=== PATIENT | male | born 1940 | race Caucasian/White ===

== ENCOUNTER 2017-02-26 14:37 | Observation (INO) | payer OTHER, BC, MEDICARE ==
[~2017-02-26] VITALS: Ht 182.9 cm; Wt 116.4 kg
[~2017-02-26 14:37] MED LIST: DIOVAN40 MG PO; GLUCOPHAGE500 MG PO; IMDUR30 MG PO; PROTONIX40 MG PO; TENORMIN25 MG PO; ZOCOR10 MG PO
[2017-02-26 16:18] LABS: ADD MIUA? NO; BILIRUBIN NEGATIVE; BLOOD NEGATIVE; COLOR YELLOW ((YELLOW)); GLUCOSE (STRIP) >=500; KETONES NEGATIVE; LEUKOCYTES NEGATIVE; NITRITE NEGATIVE; PROTEIN (STRIP) NEGATIVE; SPECIFIC GRAVITY 1.023 (1.000-1.030); UROBILINOGEN 0.2 MG/DL (0.2-1.0)
[2017-02-26 16:29] LABS: HEMATOCRIT 47.2 % (38.0-50.0); MCH 29.3 PG (29.0-34.0); MCHC 33.5 G/DL (30.0-36.0); MCV 87.6 FL (86-99); MEAN PLAT.VOLUME 10.6 uM^3 (9.0-12.4); PLATELET COUNT 285 K/uL (156-360); RBC DIS.WIDTH-SD 41.9 % (39-53); RED BLOOD COUNT 5.39 M/uL (4.00-5.50); WHITE BLOOD COUNT 14.9 K/uL (4.1-10.2)
[2017-02-26 17:12] LABS: CHLORIDE 102 mEq/L (99-109); POTASSIUM 4.9 mEq/L (3.7-5.4); SODIUM 136 mEq/L (136-147)
[2017-02-26 17:14] LABS: GLUCOSE 242 mg/dL (70-99)
[2017-02-26 17:15] LABS: ANION GAP 8 MEQ/L (2-14)
[2017-02-26 17:16] LABS: TOTAL BILIRUBIN 0.7 mg/dL (0.0-1.0)
[2017-02-26 17:18] LABS: ALKALINE PHOSPHATASE 72 IU/L (3-129); GFR ESTIMATE (CALCULATED) > 59 mL/min/
[2017-02-26 17:19] LABS: UREA NITROGEN (BUN) 24 mg/dL (9-23)
[2017-02-26 17:21] LABS: LIPASE 29 U/L (1.0-51.0); URIC ACID 4.8 mg/dL (3.1-9.2)
[2017-02-26] MEDS ORDERED: VITAMIN D31000 UNIT PO (19:33)
[2017-02-26] MEDS ORDERED: VITAMIN B-650 MG PO (19:33)
[2017-02-26 22:50] VITALS: BP 146/78
[2017-02-27 03:33] VITALS: BP 107/60
[2017-02-27 06:09] LABS: BASOPHIL COUNT 0.1 K/uL (0-0.1); EOSINOPHIL (%) 2.6 % (0-5); EOSINOPHIL COUNT 0.3 K/uL (0-0.3); HEMATOCRIT 40.5 % (38.0-50.0); IMMATURE GRANULOCYTE (%) 0.8 % (0.0-0.7); IMMATURE GRANULOCYTE COUNT 0.1 K/uL; INSTRUMENT ABS NEUTROPHIL CT 7.7 K/uL; LYMPHOCYTE COUNT 1.2 K/uL (1.0-2.8); MCH 29.7 PG (29.0-34.0); MCHC 33.8 G/DL (30.0-36.0); MCV 87.9 FL (86-99); MONOCYTE (%) 11.8 % (3-12); MONOCYTE COUNT 1.3 K/uL (0-0.8); NEUTROPHIL COUNT 7.7 K/uL (1.8-6.4); RBC DIS.WIDTH-CV 13.2 % (11.8-14.6); RBC DIS.WIDTH-SD 42.1 % (39-53); RED BLOOD COUNT 4.61 M/uL (4.00-5.50); WHITE BLOOD COUNT 10.6 K/uL (4.1-10.2)
[2017-02-27 06:21] LABS: ALKALINE PHOSPHATASE 53 IU/L (3-129); ANION GAP 9 MEQ/L (2-14); CHLORIDE 103 MEQ/L (99-109); GFR ESTIMATE (CALCULATED) > 59 mL/min/; GLUCOSE 185 mg/dL (70-99); POTASSIUM 4.6 MEQ/L (3.7-5.4); SAMPLE HEMOLYSIS CHECK 0; SAMPLE ICTERIC CHECK 0; SAMPLE LIPEMIA CHECK 0; SODIUM 135 MEQ/L (136-147); TOTAL BILIRUBIN 0.6 MG/DL (0.0-1.0); UREA NITROGEN (BUN) 25 mg/dL (9-23)
[2017-02-27 06:27] LABS: MEAN PLAT.VOLUME 10.4 uM^3 (9.0-12.4); PLAT.SUFFICIENCY ADEQUATE; PLATELET COUNT 192 K/uL (156-360)
[2017-02-27 06:32] LABS: POINT-OF-CARE METER ID UU14117124
[2017-02-27 08:10] VITALS: BP 120/60
[2017-02-27 11:26] LABS: POINT-OF-CARE METER ID UU14117124
[2017-02-27 15:20] VITALS: BP 123/64
[2017-02-27] MEDS ORDERED: PANTOPRAZOLE SO40 MG PO (16:05)
[2017-02-27] MEDS ORDERED: COLCHICINE0.6 M1 PO (16:06)
[2017-02-27] MEDS ORDERED: ZOFRAN4 MG PO (16:07)
[2017-02-27] MEDS ORDERED: ULORIC40 MG PO (16:07)
== END 2017-02-27 17:57 | disposition home or self-care (01) ==
LOC: EME 14:37 → EDOF 21:26 → 3EAST 21:26 → ENRESERV 21:29 → 3EAST 22:38
PROVIDERS: Hospitalist; Nurse Practitioner Family
DX: R10.13 Epigastric pain (principal); K85.90 Acute pancreatitis without necrosis or infection, unspecified; T38.0X5A Adverse effect of glucocorticoids and synthetic analogues, initial encounter; M10.061 Idiopathic gout, right knee; Z87.11 Personal history of peptic ulcer disease; I42.9 Cardiomyopathy, unspecified; I71.2 Thoracic aortic aneurysm, without rupture; K80.20 Calculus of gallbladder without cholecystitis without obstruction; I10 Essential (primary) hypertension; E11.9 Type 2 diabetes mellitus without complications; Z98.890 Other specified postprocedural states; G47.33 Obstructive sleep apnea (adult) (pediatric); Z88.5 Allergy status to narcotic agent
CPT/HCPCS: 73564; 74177; 76536; 76705; 80053; 81003; 82948; 83690; 84443; 84550; 85025; 85027; 85651; 86140; 87040; 99281; 99285; C9113; G0378; J0696; J1885; J7030; J7050; J7120